=== PATIENT | male | born 1985 | race African-American/Black ===

== ENCOUNTER 2017-08-31 18:26 | Emergency (ER) | payer OTHER, SELFPAY | END 2017-08-31 19:34 | disposition home or self-care (01) | LOC: ERS 18:26 | DX: S69.91XA Unspecified injury of right wrist, hand and finger(s), initial encounter (principal); J45.909 Unspecified asthma, uncomplicated; F17.210 Nicotine dependence, cigarettes, uncomplicated; X58.XXXA Exposure to other specified factors, initial encounter | CPT/HCPCS: 99283 ==

== ENCOUNTER 2018-03-05 00:10 | Emergency (ER) | payer BC, SELFPAY ==
[2018-03-05] MEDS ORDERED: predniSONE 20 MG TAB ONE (00:52)
== END 2018-03-05 01:52 | disposition home or self-care (01) ==
LOC: ERS 00:10
DX: J45.901 Unspecified asthma with (acute) exacerbation (principal); Z71.6 Tobacco abuse counseling; F17.210 Nicotine dependence, cigarettes, uncomplicated
CPT/HCPCS: 94640; 99406; J7506; J7620

== ENCOUNTER 2018-04-11 12:12 | Emergency (ER) | payer BC, OTHER | END 2018-04-11 13:05 | disposition home or self-care (01) | LOC: ERS 12:12 | DX: I10 Essential (primary) hypertension (principal); J45.909 Unspecified asthma, uncomplicated; F17.210 Nicotine dependence, cigarettes, uncomplicated | CPT/HCPCS: 99283 ==

== ENCOUNTER 2018-08-28 01:33 | Emergency (ER) | payer SELFPAY ==
[2018-08-28] MEDS ORDERED: predniSONE 20 MG TAB ONE (01:51)
--- NOTE | 2018-08-28 07:43 | RAD ---
TWO VIEWS OF THE CHEST: COMPARISON: 11/01/07. HISTORY: Asthma attack with dyspnea. FINDINGS: Two views of the chest show normal sized cardiomediastinal silhouette. There is no evidence of consol idation, mass, or pleural effusion. The bones are unremarkable. IMPRESSION: No evidence of acute cardiopulmonary disease. POS: [facility]
== END 2018-08-28 03:52 | disposition home or self-care (01) ==
LOC: ERS 01:33
DX: J45.901 Unspecified asthma with (acute) exacerbation (principal); F17.210 Nicotine dependence, cigarettes, uncomplicated; J45.909 Unspecified asthma, uncomplicated; Z71.6 Tobacco abuse counseling; Z79.899 Other long term (current) drug therapy
CPT/HCPCS: 71046; 87804; 99406; J7506; J7620

== ENCOUNTER 2018-09-24 21:34 | Emergency (ER) | payer SELFPAY ==
[2018-09-24] MEDS ORDERED: Naproxen 500 MG TAB ONE (22:46)
== END 2018-09-24 22:48 | disposition home or self-care (01) ==
LOC: ERS 21:34
DX: K08.89 Other specified disorders of teeth and supporting structures (principal); J45.909 Unspecified asthma, uncomplicated; F17.210 Nicotine dependence, cigarettes, uncomplicated
CPT/HCPCS: 99282

== ENCOUNTER 2018-10-15 23:08 | Emergency (ER) | payer SELFPAY | END 2018-10-15 23:22 | disposition home or self-care (01) | LOC: ERS 23:08 | DX: S43.401D Unspecified sprain of right shoulder joint, subsequent encounter (principal); J45.909 Unspecified asthma, uncomplicated; F17.210 Nicotine dependence, cigarettes, uncomplicated | CPT/HCPCS: 99283 ==

== ENCOUNTER 2018-10-24 19:30 | Emergency (ER) | payer SELFPAY ==
[2018-10-24] MEDS ORDERED: Dexamethasone 10 MG/ML VIAL ONE (20:53)
--- NOTE | 2018-10-24 21:09 | RAD ---
TWO VIEWS CHEST: 10/24/18 PROVIDED CLINICAL HISTORY: Cough. FINDINGS: Comparison 08/28/18. The lungs are hyperinflated. The cardiac and mediastinal silhouette is witin normal limits. No focal consolidation, pleural fluid, or pneumothorax apparent. IMPRESSION: No evidence for an acute cardiopulmonary process. POS: [facility]
== END 2018-10-24 21:32 | disposition home or self-care (01) ==
LOC: ERS 19:30
DX: J45.901 Unspecified asthma with (acute) exacerbation (principal); F17.210 Nicotine dependence, cigarettes, uncomplicated
CPT/HCPCS: 71046; J1100

== ENCOUNTER 2019-01-08 04:26 | Emergency (ER) | payer SELFPAY ==
[2019-01-08] MEDS ORDERED: Ibuprofen 800 MG TAB ONE (06:13)
--- NOTE | 2019-01-08 08:20 | RAD ---
3 VIEWS RIGHT SHOULDER: Date: 01/08/19 COMPARISON: None HISTORY: Injury, trauma, pain. FINDINGS: No widening of the acromioclavicular or coracoclavicular interspace. No displaced fracture or evidenc e of dislocation is appreciated. IMPRESSION: No acute osseous abnormality. POS: [facility]
--- NOTE | 2019-01-08 08:32 | RAD ---
2 VIEWS RIGHT ELBOW: Date: 01/08/19 COMPARISON: None. HISTORY: Right elbow pain after fall. FINDINGS: Two views of the right elbow show no evidence of acute fracture or dislocation. No degenerative mascorro es are seen. No elbow effusion is seen. IMPRESSION: Unremarkable exam. POS: [facility]
== END 2019-01-08 06:20 | disposition home or self-care (01) ==
LOC: ERS 04:26
DX: M25.511 Pain in right shoulder (principal); G89.29 Other chronic pain; J45.909 Unspecified asthma, uncomplicated; F17.210 Nicotine dependence, cigarettes, uncomplicated
CPT/HCPCS: 99406

== ENCOUNTER 2020-05-04 11:57 | Emergency (ER) | payer BC, SELFPAY ==
[2020-05-04 12:58] LABS: #Basophils 0.1 thou/uL (0.0-0.2); #Eosinphils 0.5 thou/uL (0.0-0.7); #Lymphocytes 2.2 thou/uL (1.20-3.40); #Monocytes 0.6 thou/uL (0.11-0.59); #Neutrophils 5.4 thou/uL (1.40-6.50); %Basophils 1.2 % (0.0-1.0); %Eosinophils 5.2 % (0.0-10.0); %Lymphocytes 25.4 % (21.0-51.0); %Monocytes 6.9 % (0.0-10.0); %Neutrophils 61.2 % (42.0-75.0); Hemoglobin 14.4 g/dL (14.0-18.0); Mean Corpuscular HGB CONC 33.5 g/dL (32.0-36.0); Mean Corpuscular Hemoglobin 30.7 pg (27.0-31.0); Mean Corpuscular Volume 91.7 fL (78.0-98.0); Mean Platelet Volume 7.4 fL (7.4-10.4); Platelet Count 198 thou/uL (130-400); RBC Distribution Width 11.4 % (11.5-14.5); White Blood Cell (WBC) Count 8.8 thou/uL (4.8-10.8)
[2020-05-04 13:25] LABS: ALT (SGPT) 14 U/L (8-55); AST (SGOT) 21 U/L (5-34); Alkaline Phosphatase 73 U/L (40-110); Anion Gap 10 mmol/L (10-20); BUN (Urea Nitrogen) 10 mg/dL (8.9-20.6); Bilirubin, Total 0.2 mg/dL (0.2-1.2); CK (CPK) 249 U/L (30-200); Calc. Creatinine Clearance 0 mL/min (70-130); Calcium 9.3 mg/dL (7.8-10.44); Carbon Dioxide 27 mmol/L (22-29); Chloride 107 mmol/L (98-107); Estimated GFR-MDRD 76; Globulin 3.3 g/dL (2.4-3.5); Glucose 129 mg/dL (70-105); Lipase 33 U/L (8-78); Potassium 4.1 mmol/L (3.5-5.1); Protein, Total 7.3 g/dL (6.0-8.3); Sodium 140 mmol/L (136-145)
[2020-05-04 15:12] LABS: Bacteria/HPF None Seen HPF (None Seen); Bilirubin Negative (Negative); Blood, Urine Negative (Negative); Clarity Clear (Clear); Glucose, Urine (Dipstick) Normal (Negative); Ketone, Urine Negative (Negative); Leukocyte Negative Leu/uL (Negative); Nitrite Negative (Negative); Protein, Urine (Dipstick) 30 mg/dL (Neg-Trace); RBC/HPF 0-3 HPF (0-3); Squamous Epithelial 0-3 HPF (0-3); Urobilinogen Normal mg/dL (Less than 2); WBC/HPF 0-3 HPF (0-3); pH, Urine 5.5 (5.0-9.0)
== END 2020-05-04 16:54 | disposition left against medical advice (07) ==
LOC: ERS 11:57
DX: Z53.21 Procedure and treatment not carried out due to patient leaving prior to being seen by health care provider (principal)
CPT/HCPCS: 36415; 80053; 81003; 81015; 82550; 83690; 84484; 85025; 93005

== ENCOUNTER 2020-07-16 13:07 | Emergency (ER) | payer SELFPAY ==
[2020-07-17 11:26] LABS: SARS-CoV-2 MS2 Positive; SARS-CoV-2 N Gene Negative; SARS-CoV-2 S Gene Negative; SARS-CoV-2 by NAA Not Detected (NotDetected); SARS-CoV-2 orf1ab Negative
== END 2020-07-16 13:48 | disposition home or self-care (01) ==
LOC: ERS 13:07
DX: R06.02 Shortness of breath (principal); R53.1 Weakness; R11.10 Vomiting, unspecified; R51.9 Headache, unspecified; Z20.828 Contact with and (suspected) exposure to other viral communicable diseases; J45.909 Unspecified asthma, uncomplicated; F17.210 Nicotine dependence, cigarettes, uncomplicated
CPT/HCPCS: 87635; 99283; U0003

== ENCOUNTER 2020-10-05 14:42 | Emergency (ER) | payer BC, SELFPAY ==
[2020-10-05 21:01] LABS: SARS-CoV-2 MS2 Positive; SARS-CoV-2 N Gene Negative; SARS-CoV-2 S Gene Negative; SARS-CoV-2 by NAA Not Detected (NotDetected); SARS-CoV-2 orf1ab Negative
== END 2020-10-05 15:53 | disposition home or self-care (01) ==
LOC: ERS 14:42
DX: R05 Cough (principal); R11.2 Nausea with vomiting, unspecified; R19.7 Diarrhea, unspecified; Z20.828 Contact with and (suspected) exposure to other viral communicable diseases; J45.909 Unspecified asthma, uncomplicated; F17.210 Nicotine dependence, cigarettes, uncomplicated
CPT/HCPCS: 87635; 99283; U0003

== ENCOUNTER 2020-10-14 11:42 | Emergency (ER) | payer BC ==
[2020-10-14 17:50] LABS: SARS-CoV-2 MS2 Positive; SARS-CoV-2 N Gene Negative; SARS-CoV-2 S Gene Negative; SARS-CoV-2 by NAA Not Detected (NotDetected); SARS-CoV-2 orf1ab Negative
== END 2020-10-14 12:20 | disposition home or self-care (01) ==
LOC: ERS 11:42
DX: R05 Cough (principal); R09.81 Nasal congestion; R10.9 Unspecified abdominal pain; Z20.828 Contact with and (suspected) exposure to other viral communicable diseases; J45.909 Unspecified asthma, uncomplicated; F17.210 Nicotine dependence, cigarettes, uncomplicated
CPT/HCPCS: 87635; 99283; U0003

== ENCOUNTER 2020-11-08 21:14 | Emergency (ER) | payer BC, OTHER, SELFPAY | END 2020-11-08 22:02 | disposition home or self-care (01) | LOC: ERS 21:14 | DX: R42 Dizziness and giddiness (principal); J45.909 Unspecified asthma, uncomplicated; F17.210 Nicotine dependence, cigarettes, uncomplicated | CPT/HCPCS: 99281 ==

== ENCOUNTER 2020-11-27 21:45 | Emergency (ER) | payer BC | END 2020-11-27 22:20 | disposition home or self-care (01) | LOC: ERS 21:45 | DX: G89.29 Other chronic pain (principal); M25.511 Pain in right shoulder; J45.909 Unspecified asthma, uncomplicated; F17.210 Nicotine dependence, cigarettes, uncomplicated; Y99.0 Civilian activity done for income or pay; X50.1XXA Overexertion from prolonged static or awkward postures, initial encounter | CPT/HCPCS: 99281 ==

== ENCOUNTER 2022-11-11 07:44 | Emergency (ER) | payer SELFPAY ==
[2022-11-11] MEDS ORDERED: Ibuprofen 800 MG TAB ONE (08:18)
== END 2022-11-11 08:29 | disposition home or self-care (01) ==
LOC: ERS 07:44
DX: K03.81 Cracked tooth (principal); F17.210 Nicotine dependence, cigarettes, uncomplicated
CPT/HCPCS: 99282

== ENCOUNTER 2023-01-20 10:28 | Emergency (ER) | payer SELFPAY ==
[2023-01-20] MEDS ORDERED: Albuterol 200 PUFF INH ONE (11:01)
[2023-01-20] MEDS ORDERED: predniSONE 20 MG TAB ONE (11:01)
== END 2023-01-20 12:27 | disposition home or self-care (01) ==
LOC: ERS 10:28
DX: J45.901 Unspecified asthma with (acute) exacerbation (principal); F17.210 Nicotine dependence, cigarettes, uncomplicated
CPT/HCPCS: 71045; J7512

== ENCOUNTER 2023-02-13 23:35 | Emergency (ER) | payer OTHER, SELFPAY ==
[2023-02-13] MEDS ORDERED: predniSONE 20 MG TAB ONE (23:51)
[2023-02-13] MEDS ORDERED: Ipratropium/Albuterol 3 ML NEB ONE (23:58)
== END 2023-02-14 01:17 | disposition home or self-care (01) ==
LOC: ERS 23:35
DX: J45.909 Unspecified asthma, uncomplicated (principal); F17.210 Nicotine dependence, cigarettes, uncomplicated
CPT/HCPCS: 71045; 94640; J7512; J7620

== ENCOUNTER 2024-09-23 18:11 | Emergency (ER) | payer SELFPAY ==
[2024-09-23] MEDS ORDERED: Ketorolac Tromethamine 30 MG (1 mL) VIAL ONE (19:28)
== END 2024-09-23 19:35 | disposition home or self-care (01) ==
LOC: ERS 18:11
DX: K08.89 Other specified disorders of teeth and supporting structures (principal); F17.210 Nicotine dependence, cigarettes, uncomplicated
CPT/HCPCS: 96372; 99282; J1885